=== PATIENT | male | born 1940 | race Caucasian/White ===

== ENCOUNTER 2017-05-06 19:41 | Emergency (ER) | payer OTHER ==
[~2017-05-06] VITALS: Ht 172.7 cm; Wt 80.6 kg
[2017-05-06 21:08] LABS: HEMATOCRIT 45.5 % (38.0-50.0); MCH 28.6 PG (29.0-34.0); MCHC 35.2 G/DL (30.0-36.0); MCV 81.4 FL (86-99); PLATELET COUNT 278 K/uL (156-360); RBC DIS.WIDTH-CV 12.4 % (11.8-14.6); RBC DIS.WIDTH-SD 36.7 % (39-53); RED BLOOD COUNT 5.59 M/uL (4.00-5.50); WHITE BLOOD COUNT 13.3 K/uL (4.1-10.2)
[2017-05-06 21:15] LABS: ALBUMIN 4.5 g/dL (3.2-4.8); CHLORIDE 102 mEq/L (99-109); SODIUM 136 mEq/L (136-147)
[2017-05-06 21:17] LABS: GLUCOSE 140 mg/dL (70-99)
[2017-05-06 21:18] LABS: TOTAL PROTEIN 7.6 g/dL (6.4-8.3)
[2017-05-06 21:19] LABS: TOTAL BILIRUBIN 0.7 mg/dL (0.0-1.0)
[2017-05-06 21:21] LABS: ALKALINE PHOSPHATASE 50 IU/L (3-129); CREATININE 1.3 mg/dL (0.6-1.3); GFR ESTIMATE (CALCULATED) 57 mL/min/ (58.99-99999)
[2017-05-06 21:22] LABS: UREA NITROGEN (BUN) 18 mg/dL (9-23)
[2017-05-06 21:23] LABS: AST (GOT) 35 IU/L (2-34)
[2017-05-06 21:24] LABS: ALT (GPT) 30 IU/L (3-49)
[2017-05-06 22:05] LABS: APPEARANCE CLEAR ((CLEAR)); BILIRUBIN NEGATIVE; BLOOD LARGE; COLOR YELLOW ((YELLOW)); GLUCOSE (STRIP) NEGATIVE; KETONES NEGATIVE; LEUKOCYTES NEGATIVE; NITRITE NEGATIVE; PROTEIN (STRIP) 30; UROBILINOGEN 0.2 MG/DL (0.2-1.0)
[2017-05-06] MEDS ORDERED: CIPRO500 MG PO (22:05)
[2017-05-06 22:20] LABS: BACTERIA RARE /HPF; EPITHELIAL CELLS NONE SEEN /HPF; MUCUS TRACE /LPF; RED BLOOD CELLS TNTC /HPF (0-5); UCUL ADDED? YES; WHITE BLOOD CELLS 0-5 /HPF (0-5)
[2017-05-06 23:01] VITALS: BP 161/78
[2017-05-08] MEDS ORDERED: PYRIDIUM100 MG PO (14:04)
== END 2017-05-07 00:03 | disposition home or self-care (01) ==
LOC: EME 19:41
PROVIDERS: Physician Assistant
PROC: 0T9B70Z Drainage of Bladder with Drainage Device, Via Natural or Artificial Opening (ICD-10-PCS; principal; 2017-05-06)
DX: N40.1 Benign prostatic hyperplasia with lower urinary tract symptoms (principal); K21.9 Gastro-esophageal reflux disease without esophagitis; I10 Essential (primary) hypertension; E78.5 Hyperlipidemia, unspecified; E03.9 Hypothyroidism, unspecified; F41.9 Anxiety disorder, unspecified; Z87.891 Personal history of nicotine dependence
CPT/HCPCS: 80053; 81003; 82948; 85027; 87086; 99281; 99285; J2270; J2405; J3010

== ENCOUNTER 2017-05-08 11:52 | Emergency (ER) | payer OTHER ==
[~2017-05-08] VITALS: Ht 172.7 cm; Wt 80.2 kg
[~2017-05-08 11:52] MED LIST: CIPRO500 MG PO
[2017-05-08] MEDS ORDERED: PYRIDIUM100 MG PO (14:04)
[2017-05-08 14:18] VITALS: BP 159/75
== END 2017-05-08 14:19 | disposition home or self-care (01) ==
LOC: EME 11:52
DX: R31.9 Hematuria, unspecified (principal); I10 Essential (primary) hypertension; E78.5 Hyperlipidemia, unspecified; N40.0 Benign prostatic hyperplasia without lower urinary tract symptoms; K21.9 Gastro-esophageal reflux disease without esophagitis; F41.9 Anxiety disorder, unspecified; Z87.891 Personal history of nicotine dependence
CPT/HCPCS: 81003; 99281; 99284